=== PATIENT | male | born 1955 | race Caucasian/White ===

== ENCOUNTER 2016-10-19 06:53 | Day surgery (SDC) | payer OTHER ==
[~2016-10-19] VITALS: Ht 177.8 cm; Wt 113.4 kg
[~2016-10-19 06:53] MED LIST: 0.9% Sodium Chloride 1,000 ML IV PRN; ASPI-973 PO; CARV25TA2 PO; CREST10T PO; LISI40TA PO; Sodium Chloride LOK Flush 10 mL Syringe IV PRN; fentaNYL-PF 50 mCg/mL 2 mL Inj IVPUSH PRN
[2016-10-19] MEDS ORDERED: fentaNYL-PF 50 mCg/mL 2 mL Inj IVPUSH PRN ×2 (07:20→07:50)
[2016-10-19 07:24] VITALS: BP 135/83; PULSE 65; RESP 16; O2SAT 96
[2016-10-19] MEDS: 0.9% Sodium Chloride 1,000 ML IV PRN ×2 (07:33→07:50)
[2016-10-19] MEDS ORDERED: 0.9% Sodium Chloride 1,000 ML IV PRN ×3 (07:48)
[2016-10-19] MEDS ORDERED: Sodium Chloride LOK Flush 10 mL Syringe IV PRN ×2 (07:50)
--- NOTE | 2016-10-19 08:25 | PCM.ENDCOL ---
Colonoscopy Date of Service: Oct 19, 2016 Physician Colt Davalos MD Indication for Procedure Screening colon cancer and personal history of colon polyps Post Procedure Dx & Findings: Polyps hemorrhoids diverticuliti Procedure Colonoscopy Prep adequate Cecum 4 minutes Withdrawal 13 minutes PROCEDURE IN DETAIL: After unremarkable rectal examination Olympus video colonoscope was inserted patient's anal canal and was advanced to cecum. Landmarks were identified including the ileocecal valve and appendiceal orifice. Scope was withdrawn systematically. The mucosa of the cecum, ascending, transverse, descending, sigmoid, rectal mucosa lined with whitish, pink, smooth, glistening, normal-appearing mucosa, normal fine branching, underlying vascularity, normal haustra. The patient tolerated procedure and was transported to observation area. In the ascending colon there were 2 less than 1 mm polyps which were all removed completely using cold forceps. The transverse colon, there was a 1 mm polyp which was resected completely using cold forcep. In the transverse colon , there was a 3 mm polyp which was resected completely using cold snare. In the rectum less than 1 mm polyp was seen. This was resected completely using cold forcep. In the sigmoid colon, there were moderate number of medium sized diverticuli. In the rectum retroflexion was done which showed hemorrhoids anal canal was inspected carefully and the way out and mild hemorrhoids noted. Impression Polyps 5 status post complete removal. Hemorrhoids Diverticuli Personal history of colon polyps Recommendation Repeat colonoscopy 3 years. Diverticular diet. Presedation Assessment Risks and Benefits Informed consent was obtained from the patient after all risks and benefits including but not limited to drug reaction, infection, pain, bleeding, perforation, as well as alternatives were discussed. Patient monitoring Continuous pulse oximetry, cardiac monitoring, blood pressure monitoring, IV access, and oxygen at 2L per nasal cannula. Periprocedural Fentanyl: Fentanyl 100mcg Incrementally Midazolam: Midazolam 5mg Incrementally Complications There were no periprocedural complications identified. Post Procedure Plan Post Procedure Recommendations 1. Restrict activities today. 2. Resume normal activities in the morning. 3. Resume medications. 4. Patient informed of normal post procedure side effects as bloating, drowsiness, blood streaking in the stool. 5. average risk CRCS. If colon polyps come back as: -Hyperplastic- can repeat colonoscopy in 10 years -Tubular adenoma- repeat colonoscopy in 5 years -Tubulovillous/villous adenoma- repeat colonoscopy in 3 years -If any dysplasia- return to clinic as soon as possible 6. Please don't hesitate to call me with any questions. Colt Davalos MD Oct 19, 2016 08:25
[2016-10-19 08:26] VITALS: BP 149/87; PULSE 73; RESP 14; O2SAT 93
[2016-10-19 08:35] VITALS: BP 143/87; PULSE 70; RESP 14; O2SAT 94
--- NOTE | 2016-10-20 13:52 | PATH ---
SURGICAL PATHOLOGY Attending Physician:Colt Davalos M.D. CASE STATUS: Signed Out * Amended * PATIENT NAME: NATALEE STEIN PID: [id number] : 1955 DATE COLLECTED:10/19/2016 15:47 SPECIMEN: 1: Colon, Biopsy 2: Colon, Biopsy 3: Rectum, Biopsy CLINICAL HISTORY: A: ASCENDING COLON POLYP X2 B: TRANSVERSE COLON POLYP X2 C; RECTAL POLYP X1 FINAL DIAGNOSIS: 1.ASCENDING COLON POLYP: TUBULAR ADENOMA INVOLVING SINGLE BIOPSY FRAGMENT. 2.TRANSVERSE COLON POLYP: SESSILE SERRATED ADENOMA INVOLVING SINGLE BIOPSY FRAGMENT. 3.RECTAL POLYP:AMENDED DIAGNOSIS HYPERPLASTIC POLYP. ICD10 CODE D12.2 NOTE: AMENDMENT Part 3 on this case was originally described as a serrated adenoma, traditional type, with mild dysplasia. Upon review, this polyp is better classified as a hyperplastic polyp. This amended report is dictated at this time in order to make this correction. GROSS DESCRIPTION: The specimen is received in three formalin filled containers labeled with the patient's name. 1). The specimen is sublabeled "ascending colon polyps" and consists of 2 portions of tissue which aggregate to 0.3 x 0.3 x 0.2 CM. The specimen is entirely submitted in cassette 1A. 2). The specimen is sublabeled "transverse colon polyps" and consists of 2 portions of tissue which aggregate to 0.4 x 0.4 x 0.3 CM. The specimen is entirely submitted in cassette 2A. 3). The specimen is sublabeled "rectal polyp" and consists of a 0.3 x 0.3 x 0.3 CM portion of tissue which is entirely submitted in cassette 3A. 10/19/2016 DAC MICRO DESCRIPTION: See diagnosis. ICD-9 CODES: CPT CODES: 1: 93858 2: 92203 3: 47284 AMENDMENT(S): Amended: 12/18/2016 by Kathie Hallman Reason:Amended Diagnosis Previous Signout Date: 10/20/2016 Electronically Signed Out Celestino Estrella MD [facility] Pathology [facility] [address], [place] [address] Technical component performed at [facility], [facility] [address], [place], [address]
== END 2016-10-19 23:59 | disposition home or self-care (01) ==
LOC: END 06:53
PROVIDERS: ATTEND Internal Medicine
DX: Z12.11 Encounter for screening for malignant neoplasm of colon (principal); D12.2 Benign neoplasm of ascending colon; D12.3 Benign neoplasm of transverse colon; D12.8 Benign neoplasm of rectum; K64.8 Other hemorrhoids; K57.30 Diverticulosis of large intestine without perforation or abscess without bleeding; Z86.010 Personal history of colon polyps; G47.30 Sleep apnea, unspecified; Z87.891 Personal history of nicotine dependence; Z79.82 Long term (current) use of aspirin